=== PATIENT | male | born 1965 | race Caucasian/White ===

== ENCOUNTER 2018-02-11 07:34 | Emergency (ER) | payer SELFPAY ==
[~2018-02-11] VITALS: Ht 182.9 cm; Wt 144.5 kg
[2018-02-11 09:03] VITALS: BP 138/88
== END 2018-02-11 09:03 | disposition home or self-care (01) ==
LOC: EME 07:34
DX: Z00.00 Encounter for general adult medical examination without abnormal findings (principal); F17.200 Nicotine dependence, unspecified, uncomplicated
CPT/HCPCS: 99281; 99284; G0480